=== PATIENT | male | born 1975 | race Caucasian/White ===

== ENCOUNTER 2017-11-10 16:45 | Emergency (ER) | payer OTHER ==
[2017-11-10] MEDS ORDERED: Ketorolac INJ* 30 MG/ML 1 ML VIAL IV PUSH ONE (17:55)
[2017-11-10] MEDS ORDERED: Dexamethasone IV* 4 MG/ML 1 ML (4 MG) IV SLOW PU ONE (17:55)
[2017-11-10] MEDS ORDERED: Magnesium Sulfate IV* 2 GM in NS 0.9% 100 ML* 100 ML IV ONE (17:55)
[2017-11-10] MEDS ORDERED: Metoclopramide IV* 5 MG/ML 2 ML VIAL IV SLOW PU ONE (17:55)
--- NOTE | 2017-11-10 18:01 | ED ---
Headache - HPI Summary HPI Summary: The patient is a 42 y/o M presenting to [facility] accompanied by with a chief complaint of a headache with sudden onset at 0300 this morning. The right-sided headache woke him up and has persisted throughout the day despite taking Hydrocodone and Imitrex, which are prescribed for his hx of headaches. He additionally c/o dehydration, decreased oral intake, nausea, vomiting, photophobia, sensitivity to sound. He denies tingling and numbness. 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 - History Of Current Complaint Chief Complaint: EDHeadache Stated Complaint: MIGRAINE Time Seen by Provider: 11/10/17 17:52 Hx Obtained From: Patient Onset/Duration: Sudden Onset, Started hours ago - 0300 this morning, Still Present Initially Headache Was: Moderate Currently Pain Is: Current Pain Scale(0-10)= - 4, Moderate Timing: Constant, Hours Character: Typical Headache Location of Headache: Other: - right-sided Aggravating Factor: Bright Lights Allevating Factors: Nothing - Hydrocodone, Imitrex, and Tylenol did not help Associated Signs And Symptoms: Nausea, Vomiting, Other (Noted In Comments) - POSITIVE: dehydration, decreased oral intake, nausea, vomiting, photophobia, sensitivity to sound; NEGATIVE: tingling and numbness Head: 1 - right-sided headache persisting throughout the day - Allergies/Home Medications Allergies/Adverse Reactions: Allergies Allergy/AdvReac Type Severity Reaction Status Date / Time tuna Allergy Anaphylatic Uncoded 11/10/17 18:03 Shock PMH/Surg Hx/FS Hx/Imm Hx Infectious Disease History: No Infectious Disease History: Denies: Traveled Outside the [place] in Last 30 Days - Social History Alcohol Use: Rare Substance Use Type: Reports: None Smoking Status (MU): Never Smoked Tobacco Review of Systems Positive: Other - dehydration Positive: Photophobia Positive: Other - sensitivity to sound Positive: Vomiting, Nausea, Other - decreased oral intake Positive: Headache. Negative: Numbness - or tingling All Other Systems Reviewed And Are Negative: Yes Physical Exam - Summary Physical Exam Summary: The patient is a 42 y/o M presenting to [facility] accompanied by with a chief complaint of a headache with sudden onset at 0300 this morning. The right-sided headache woke him up and has persisted throughout the day despite taking Hydrocodone and Imitrex, which are prescribed for his hx of headaches. He additionally c/o dehydration, decreased oral intake, nausea, vomiting, photophobia, sensitivity to sound. He denies tingling and numbness. 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 Triage Information Reviewed: Yes Vital Signs On Initial Exam: Initial Vitals Temp Pulse Resp BP Pulse Ox 97.7 F 65 16 129/80 97 11/10/17 17:21 18 17:21 11/10/17 17:21 11/10/17 17:21 11/10/17 17:21 Vital Signs Reviewed: Yes Diagnostics - Vital Signs Vital Signs Temp Pulse Resp BP Pulse Ox 11/10/17 17:21 97.7 F 65 16 129/80 97 - Laboratory Lab Statement: Any lab studies that have been ordered have been reviewed, and results considered in the medical decision making process. Headache Course/Dx - Course Course Of Treatment: The patient is a 42 y/o M presenting to [facility] accompanied by with a chief complaint of a headache with sudden onset at 0300 this morning. The right-sided headache woke him up and has persisted throughout the day despite taking Hydrocodone and Imitrex, which are prescribed for his hx of headaches. He additionally c/o dehydration, decreased oral intake, nausea, vomiting, photophobia, sensitivity to sound. He denies tingling and numbness. 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 In the ED course, the pt was administered normal saline, Decadron, Toradol, Mag Sulfate, and Reglan. Patient will be a sign-out to Dr. De Anda at shift change pending lab work and disposition. Discharge - Sign-Out/Discharge Documenting (check all that apply): Sign-Out Patient - Patient will be a sign- out to Dr. De Anda at shift change pending lab work and disposition. Signing out patient TO: Hector De Anda - Discharge Plan Referrals: No Primary Care Phys,NOPCP [Primary Care Provider] - - Attestation Statements Document Initiated by Scribe: Yes Documenting Scribe: Nory Bird Provider For Whom Scribe is Documenting (Include Credential): Maximus Chatterjee MD Scribe Attestation: I, Nory Bird, scribed for Maximus Chatterjee MD on 11/10/17 at 1904. Scribe Documentation Reviewed: Yes Provider Attestation: The documentation as recorded by the scribe, Nory Bird accurately reflects the service I personally performed and the decisions made by me, Maximus Chatterjee MD
[2017-11-10] MEDS ORDERED: Magnesium Sulfate 2 GM IV* 2 GM/50 ML BAG IV ONE (18:34)
[2017-11-10] MEDS ORDERED: NS 0.9% 1000 ML* 1,000 ML IV ONE (18:48)
[2017-11-10 19:11] LABS: Hematocrit 41 % (42-52); Hemoglobin 14.6 g/dl (14.0-18.0); Mean Corpuscular HGB Conc 35 g/dl (31-36); Mean Corpuscular Hemoglobin 33 pg (27-31); Mean Corpuscular Volume 95 fL (80-94); Platelet Count 223 10^3/ul (150-450); Red Blood Count 4.37 10^6/ul (4.00-5.40); Red Cell Distribution Width 13 % (10.5-15); White Blood Count 8.1 10^3/ul (3.5-10.8)
[2017-11-10 19:33] LABS: EGFR Non-African American 123.7 (>60)
[2017-11-10 19:58] VITALS: BP 126/71
--- NOTE | 2017-11-14 02:27 | ED ---
Course/Dx - Course Course Of Treatment: The patient is a 42 y/o M presenting to [facility] accompanied by with a chief complaint of a headache with sudden onset at 0300 this morning. The right-sided headache woke him up and has persisted throughout the day despite taking Hydrocodone and Imitrex, which are prescribed for his hx of headaches. He additionally c/o dehydration, decreased oral intake, nausea, vomiting, photophobia, sensitivity to sound. He denies tingling and numbness. 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 In the ED course, the pt was administered normal saline, Decadron, Toradol, Mag Sulfate, and Reglan. Patient will be a sign-out to Dr. De Anda at shift change pending lab work and disposition. - Diagnoses Provider Diagnoses: Headache Discharge - Sign-Out/Discharge Documenting (check all that apply): Patient Departure - Discharge Plan Condition: Good Disposition: HOME Patient Education Materials: Migraine Headache (ED) Referrals: [facility] [Outside] - 1 Day (1-2 days) Additional Instructions: Get plenty of rest, plenty of fluids, avoid intense sensory stimulation such as very bright lights or loud noises. - Billing Disposition and Condition Condition: GOOD Disposition: Home - Attestation Statements Document Initiated by Scribe: No
== END 2017-11-10 19:54 | disposition home or self-care (01) ==
LOC: ED 16:45
DX: R51 Headache (principal)
CPT/HCPCS: 36415; 80053; 85027; 96361; 96374; 96375; 99283; J1100; J1885; J2765; J3475